=== PATIENT | female | born 1945 | race Asian ===

== ENCOUNTER 2017-09-11 10:09 | Emergency (ER) | payer MEDICARE ==
[~2017-09-11] VITALS: Ht 152.4 cm; Wt 54.5 kg
[~2017-09-11 10:09] MED LIST: /ESOM40CA OR; /FENT50PA; /GLIM2TA OR; ACET500C OR; ANTI25TA; AVAP150T OR; BETAMETHASONE CREAM TOP; CARV12.5 OR; COLA100C2; COZA100T; COZA50TA18 OR; GLUC500T OR; HYDROCONE; HYZAAR OR; LEVA500T; LOPR50TA; MELOPOW PO; NEUR100C OR; NORV5TAB OR; PRAV40TA OR; PREG50CA; PREV15CA OR; [UNRECOGNIZED DRUG - OTHER]; [UNRECOGNIZED DRUG - OTHER] OR; [UNRECOGNIZED DRUG - OTHER] OR
[2017-09-11 10:10] VITALS: BP 138/84
[2017-09-11] MEDS ORDERED: PRED10PA2 PO (10:22)
[2017-09-11] MEDS ORDERED: [UNRECOGNIZED DRUG - OTHER] (10:22)
[2017-09-11] MEDS ORDERED: CIPR-249 PO (10:22)
[2017-09-11] MEDS ORDERED: MUCI600T31 PO (10:22)
--- NOTE | 2017-09-11 11:18 | REP ---
CHEST, TWO VIEWS: There is no evidence of acute infiltrate. No pleural effusion is seen. The heart is normal in size. The mediastinal silhouette is unremarkable. The visualized osseous structures are intact. There are mild degenerative changes of the spine. IMPRESSION: No acute pulmonary disease. Signed by Juan Alvarado MD 09/11/2017 04:57 P
[2017-09-11] MEDS ORDERED: VENTAER IN (11:33)
[2017-09-11] MEDS ORDERED: TESS100C PO (11:33)
[2017-09-11] MEDS ORDERED: BENZONATATE 100 MG CAP PO ONE (11:45)
== END 2017-09-11 11:47 | disposition home or self-care (01) ==
LOC: M ED 10:09
DX: J20.9 Acute bronchitis, unspecified (principal); J45.901 Unspecified asthma with (acute) exacerbation; I10 Essential (primary) hypertension; E11.9 Type 2 diabetes mellitus without complications; Z79.899 Other long term (current) drug therapy; Z79.84 Long term (current) use of oral hypoglycemic drugs; Z88.0 Allergy status to penicillin

== ENCOUNTER → 2018-02-20 | Outpatient (CLI) | payer MEDICARE ==
[2018-02-20 07:08] LABS: HEMATOCRIT 40.3 % (36.0-47.0); HEMOGLOBIN 13.7 g/dl (12.0-15.5); MEAN CORPUSCULAR HEMOGLOBIN 28.5 pg (27.0-33.0); PLATELET COUNT, AUTOMATED 290 10^3/uL (150-450); RED CELL DISTRIBUTION WIDTH 12.3 % (11.5-14.5); WHITE BLOOD COUNT 7.5 10^3/uL (4.0-10.0)
[2018-02-20 07:34] LABS: ESTIMATED AVERAGE GLUCOSE 171 MG/DL (60-110); HEMOGLOBIN A1c 7.6 %
[2018-02-20 07:40] LABS: ALBUMIN 3.8 GM/DL (3.2-5.2); ALBUMIN/GLOBULIN RATIO 1.12 (1.00-1.93); ALKALINE PHOSPHATASE 66 U/L (45-117); ALT/SGPT 32 U/L (12-78); ANION GAP 7 MEQ/L (8-16); AST/SGOT 19 U/L (7-37); BILIRUBIN,TOTAL 0.4 MG/DL (0.2-1.0); BLOOD UREA NITROGEN 11 MG/DL (7-18); CALCIUM LEVEL 8.9 MG/DL (8.8-10.2); CARBON DIOXIDE LEVEL 27 MEQ/L (21-32); CHLORIDE LEVEL 108 MEQ/L (98-107); CHOLESTEROL LEVEL 165 MG/DL (<200); CHOLESTEROL RISK RATIO 3.113 (<5); CREATININE FOR GFR 0.59 MG/DL (0.55-1.30); GLOMERULAR FILTRATION RATE > 60.0 (>39); GLUCOSE, FASTING 130 MG/DL (70-100); HDL CHOLESTEROL 53 MG/DL (>40); LDL CHOLESTEROL 85.6 MG/DL (<100); NON-HDL-C 112 MG/DL; POTASSIUM SERUM 4.5 MEQ/L (3.5-5.1); SODIUM LEVEL 142 MEQ/L (136-145); TOTAL PROTEIN 7.2 GM/DL (6.4-8.2); TRIGLYCERIDES LEVEL 132 MG/DL (<150)
[2018-02-20 10:33] LABS: TOTAL 25(OH) VITAMIN D 37.2 NG/ML (30.0-100.0)
== END ==
LOC: M LAB 06:02
DX: I10 Essential (primary) hypertension (principal); E11.9 Type 2 diabetes mellitus without complications; R53.83 Other fatigue; Z79.899 Other long term (current) drug therapy
CPT/HCPCS: 71046

== ENCOUNTER → 2018-02-21 | Outpatient (CLI) | payer MEDICARE | LOC: M RAD 17:38 | DX: Z12.31 Encounter for screening mammogram for malignant neoplasm of breast (principal) | CPT/HCPCS: 77067 ==

== ENCOUNTER → 2018-09-20 | Outpatient (CLI) | payer MEDICARE ==
[~2018-09-20] MED LIST changes: +CIPR-249 PO; +E-Z-PAQUE 96% w/w SUSP 176GM BTL As Ordered ONE; +MUCI600T31 PO; +PRED10PA2 PO; +TESS100C PO; +VENTAER IN; +[UNRECOGNIZED DRUG - OTHER]
== END ==
LOC: M RAD 09:11
PROVIDERS: ATTEND Family Medicine
DX: R10.13 Epigastric pain (principal); Z53.8 Procedure and treatment not carried out for other reasons

== ENCOUNTER → 2018-10-04 | Outpatient (CLI) | payer MEDICARE ==
[~2018-10-04] MED LIST changes: +E-Z-GAS II EFFERVESCENT PACKET (SODIUM BICARB./CITRIC ACID/SIMETHICONE) As Ordered ONE; +E-Z-HD 98% w/w 340GM SUSP BTL As Ordered ONE
--- NOTE | 2018-10-04 10:40 | REP ---
RIGHT UPPER QUADRANT ULTRASOUND: Real-time sonographic evaluation of the right upper quadrant performed. There is a gallbladder polyp 6 mm in diameter along the inner wall. There is a calculus in the gallbladder 1.5 cm in diameter. No gallbladder wall thickening is seen and there is no pericholecystic fluid. There is no intrahepatic or extrahepatic biliary dilatation, common bile duct measuring 4 mm. Liver and pancreas demonstrate no definite abnormality, pancreas is not optimally seen due to overlying bowel gas. Right kidney demonstrates an extrarenal pelvis. There is no overt hydronephrosis. Right kidney is normal in size, 9.3 cm in length. IMPRESSION: 6 mm polyp in the gallbladder as well as a 1.5 mm gallstone. No gallbladder wall thickening, pericholecystic fluid or biliary dilatation. Electronically Signed by Juan Alvarado MD 10/04/2018 12:18 P
--- NOTE | 2018-10-04 17:10 | REP ---
Upper GI air contrast The procedure was performed under the direct supervision of Dr. Alvarado. The images were reviewed with Dr. Alvarado The skin toggler film shows no organomegaly or pathological masses. The intestinal gas pattern is non-specific. There are gallstones seen in the right upper quadrant. Liquid barium and gas producing crystals were given in the erect position as well as liquid barium in the prone oblique position in order to perform a double contrast upper GI examination. The oral and pharyngeal stages of deglutition are unremarkable. Esophageal transport is prompt and efficient and there is no esophagitis, stricture, mucosal ring or hiatal hernia. Gastroesophageal reflux is not demonstrated on this examination. The stomach mills are normally outlined . The rugal folds are smooth and regular. There is no gastritis neoplasm or ulcer disease. The duodenal mills are normally outlined . The mucosal folds are smooth and regular. There is no duodenitis pancreatitis peptic ulcer disease or neoplasm. The visualized portion of the proximal small bowel appears normal in course and caliber. Impression: Essentially unremarkable double contrast upper GI examination. 0.5 minutes of fluoro time was utilized for this procedure. Reviewed by JUNIOR Ram 10/04/2018 04:58 P Electronically Signed by Juan Alvarado MD 10/04/2018 05:01 P
== END ==
LOC: M RAD 08:05
PROVIDERS: ATTEND Family Medicine
DX: R10.13 Epigastric pain (principal)

== ENCOUNTER 2019-05-19 07:00 | Outpatient (RCR) | payer MEDICARE ==
[~2019-05-19 07:00] MED LIST changes: -/ESOM40CA OR; -/FENT50PA; -/GLIM2TA OR; +AMAR1TAB5 OR; -E-Z-GAS II EFFERVESCENT PACKET (SODIUM BICARB./CITRIC ACID/SIMETHICONE) As Ordered ONE; -E-Z-HD 98% w/w 340GM SUSP BTL As Ordered ONE; -E-Z-PAQUE 96% w/w SUSP 176GM BTL As Ordered ONE; +FENT1DIS15; +NEXI1CAP3 OR
== END 2019-05-21 ==
LOC: M PT 07:00
PROVIDERS: ATTEND Family Medicine
DX: Z51.89 Encounter for other specified aftercare (principal); M25.511 Pain in right shoulder; M25.512 Pain in left shoulder

== ENCOUNTER → 2019-05-22 | Outpatient (CLI) | payer MEDICARE ==
[2019-05-22 07:16] LABS: HEMATOCRIT 40.4 % (36.0-47.0); HEMOGLOBIN 13.7 g/dl (12.0-15.5); MEAN CORPUSCULAR HEMOGLOBIN 28.7 pg (27.0-33.0); MEAN CORPUSCULAR HGB CONC 33.9 g/dl (32.0-36.5); MEAN CORPUSCULAR VOLUME 84.7 fl (80.0-96.0); PLATELET COUNT, AUTOMATED 203 10^3/uL (150-450); RED BLOOD COUNT 4.77 10^6/uL (4.00-5.40); WHITE BLOOD COUNT 8.1 10^3/uL (4.0-10.0)
[2019-05-22 07:48] LABS: HEMOGLOBIN A1c 7.4 %
[2019-05-22 09:04] LABS: ALBUMIN 3.9 GM/DL (3.2-5.2); ALT/SGPT 29 U/L (12-78); BILIRUBIN,TOTAL 0.4 MG/DL (0.2-1.0); BLOOD UREA NITROGEN 12 MG/DL (7-18); CALCIUM LEVEL 9.1 MG/DL (8.8-10.2); CARBON DIOXIDE LEVEL 28 MEQ/L (21-32); CHLORIDE LEVEL 103 MEQ/L (98-107); CHOLESTEROL LEVEL 184 MG/DL (<200); CHOLESTEROL RISK RATIO 3.471 (<5); CREATININE FOR GFR 0.69 MG/DL (0.55-1.30); GLOMERULAR FILTRATION RATE > 60.0 (>39); GLUCOSE, FASTING 127 MG/DL (70-100); HDL CHOLESTEROL 53 MG/DL (>40); LDL CHOLESTEROL 98 MG/DL (<100); NON-HDL-C 131 MG/DL; POTASSIUM SERUM 4.3 MEQ/L (3.5-5.1); SODIUM LEVEL 138 MEQ/L (136-145); TOTAL PROTEIN 7.3 GM/DL (6.4-8.2); TRIGLYCERIDES LEVEL 163 MG/DL (<150)
== END ==
LOC: M LAB 06:15
PROVIDERS: ATTEND Family Medicine
DX: D64.9 Anemia, unspecified (principal); R53.83 Other fatigue; Z79.899 Other long term (current) drug therapy

== ENCOUNTER → 2019-06-02 | Outpatient (CLI) | payer MEDICARE, MEDICAID ==
--- NOTE | 2019-06-02 19:46 | REPMRS ---
Patient History The patient states she has not had a clinical breast exam in over a year. Benign stereotactic core biopsy of the right breast. Digital Mammo Screening Bilat: June 02, 2019 - Exam #: [id number] Bilateral CC and MLO view(s) were taken. Technologist: Kaitlynn Espino, Technologist Prior study comparison: February 21, 2018, bilateral digital mammo screening bilat performed at [facility]. October 05, 2015, bilateral digital woman screen mammo performed at [facility]. June 16, 2009, right breast diagnostic mammogram, performed at [facility]. FINDINGS: There are scattered fibroglandular densities. A needle biopsy marker clip is again noted adjacent to a stable nodular opacity in the upper outer quadrant of the right breast unchanged from multiple prior studies. There has been no change in the appearance of the mammogram from the prior studies. There is a mild amount of scattered fibroglandular density which is fairly symmetric. There is no interval development of dominant mass, architectural distortion, or grouped microcalcification suggestive of malignancy. 3-D tomosynthesis shows no additional findings. Assessment: BI-RADS/ACR category 2 mammogram. Benign Findings. Recommendation Routine screening mammogram of both breasts in 1 year (for women over age 40). This patient's Lifetime Breast Cancer Risk is estimated at 4.2 %. This mammogram was interpreted with the aid of an FDA-approved computer-aided dectection system. Electronically Signed By: Nick Del Angel MD 06/02/19 [id number]
== END ==
LOC: M RAD 17:30
PROVIDERS: ATTEND Family Medicine
DX: Z12.31 Encounter for screening mammogram for malignant neoplasm of breast (principal)

== ENCOUNTER 2019-06-18 07:00 | Outpatient (RCR) | payer MEDICARE | END 2019-06-21 | LOC: M PT 07:00 | PROVIDERS: ATTEND Family Medicine | DX: Z51.89 Encounter for other specified aftercare (principal); M25.511 Pain in right shoulder; M25.512 Pain in left shoulder ==

== ENCOUNTER 2019-06-25 11:18 | Outpatient (RCR) | payer MEDICARE | END 2019-07-21 | LOC: M PT 11:18 | PROVIDERS: ATTEND Family Medicine | DX: Z51.89 Encounter for other specified aftercare (principal); M19.011 Primary osteoarthritis, right shoulder; M19.012 Primary osteoarthritis, left shoulder ==

== ENCOUNTER → 2020-06-25 | Outpatient (CLI) | payer MEDICARE ==
--- NOTE | 2020-06-25 16:37 | REPMRS ---
Patient History The patient states she has not had a clinical breast exam in over a year. Patient is postmenopausal. No known family history of cancer. Benign stereotactic core biopsy of the right breast. No Hormone Replacement Therapy 3D TOMOSYNTHESIS WAS PERFORMED. [facility]%. VOLPARA DENSITY B. Digital Woman Screen Mammo: June 25, 2020 - Exam #: [id number] Bilateral CC and MLO view(s) were taken. Technologist: Jacqueline Abraham, Technologist Prior study comparison: June 02, 2019, bilateral digital mammo screening bilat, performed at [facility]. February 21, 2018, bilateral digital mammo screening bilat, performed at [facility]. FINDINGS: The breast tissue is heterogeneously dense. This may lower the sensitivity of mammography. There has been no change in the appearance of the mammogram from the prior studies. There is a moderate amount of residual fibroglandular tissue which is fairly symmetric. There is no interval development of dominant mass, areas of architectural distortion, or clustered microcalcification typical of malignancy. Assessment: BI-RADS/ACR category 1 mammogram. Negative Mammogram. Recommendation Routine screening mammogram in 1 year (for women over age 40). This mammogram was interpreted with the aid of an FDA-approved computer-aided dectection system. Electronically Signed By: Juan Alvarado MD 06/25/20 [id number]
== END ==
LOC: M WHC 15:22
PROVIDERS: ATTEND Family Medicine
DX: Z12.31 Encounter for screening mammogram for malignant neoplasm of breast (principal); Z78.0 Asymptomatic menopausal state; Z86.018 Personal history of other benign neoplasm

== ENCOUNTER → 2020-09-12 | Outpatient (CLI) | payer MEDICARE ==
[2020-09-12 09:20] LABS: MEAN CORPUSCULAR HEMOGLOBIN 29.1 pg (27.0-33.0); MEAN CORPUSCULAR HGB CONC 33.3 g/dl (32.0-36.5); MEAN CORPUSCULAR VOLUME 87.4 fl (80.0-96.0); PLATELET COUNT, AUTOMATED 224 10^3/uL (150-450); RED BLOOD COUNT 4.46 10^6/uL (4.00-5.40); WHITE BLOOD COUNT 6.1 10^3/uL (4.0-10.0)
[2020-09-12 09:39] LABS: ALBUMIN 4.1 GM/DL (3.2-5.2); ALT/SGPT 32 U/L (12-78); BILIRUBIN,TOTAL 0.5 MG/DL (0.2-1.0); BLOOD UREA NITROGEN 12 MG/DL (7-18); CALCIUM LEVEL 9.6 MG/DL (8.8-10.2); CARBON DIOXIDE LEVEL 28 MEQ/L (21-32); CHLORIDE LEVEL 105 MEQ/L (98-107); CHOLESTEROL LEVEL 211 MG/DL (<200); CHOLESTEROL RISK RATIO 3.767 (<5); CREATININE FOR GFR 0.76 MG/DL (0.55-1.30); GLOMERULAR FILTRATION RATE > 60.0 (>39); GLUCOSE, FASTING 166 MG/DL (70-100); HDL CHOLESTEROL 56 MG/DL (>40); LDL CHOLESTEROL 123 MG/DL (<100); NON-HDL-C 155 MG/DL; POTASSIUM SERUM 4.3 MEQ/L (3.5-5.1); SODIUM LEVEL 138 MEQ/L (136-145); TOTAL PROTEIN 7.4 GM/DL (6.4-8.2); TRIGLYCERIDES LEVEL 160 MG/DL (<150)
[2020-09-12 10:08] LABS: HEMOGLOBIN A1c 7.1 %
[2020-09-13 10:16] LABS: TOTAL 25(OH) VITAMIN D 46.4 NG/ML (30.0-100.0)
== END ==
LOC: M LAB 08:12
PROVIDERS: ATTEND Family Medicine
DX: R53.83 Other fatigue (principal); E11.9 Type 2 diabetes mellitus without complications; I10 Essential (primary) hypertension; Z79.899 Other long term (current) drug therapy

== ENCOUNTER → 2020-12-16 | Outpatient (CLI) | payer MEDICARE ==
[2020-12-16 06:58] LABS: HEMATOCRIT 39.4 % (36.0-47.0); HEMOGLOBIN 13.1 g/dl (12.0-15.5); MEAN CORPUSCULAR HEMOGLOBIN 29.1 pg (27.0-33.0); MEAN CORPUSCULAR HGB CONC 33.2 g/dl (32.0-36.5); MEAN CORPUSCULAR VOLUME 87.6 fl (80.0-96.0); PLATELET COUNT, AUTOMATED 241 10^3/uL (150-450); WHITE BLOOD COUNT 7.3 10^3/uL (4.0-10.0)
[2020-12-16 07:36] LABS: ALBUMIN 3.8 GM/DL (3.2-5.2); ALT/SGPT 34 U/L (12-78); BILIRUBIN,TOTAL 0.4 MG/DL (0.2-1.0); BLOOD UREA NITROGEN 14 MG/DL (7-18); CALCIUM LEVEL 9.9 MG/DL (8.8-10.2); CARBON DIOXIDE LEVEL 28 MEQ/L (21-32); CHLORIDE LEVEL 107 MEQ/L (98-107); CHOLESTEROL LEVEL 231 MG/DL (<200); CHOLESTEROL RISK RATIO 3.982 (<5); CREATININE FOR GFR 0.79 MG/DL (0.55-1.30); GLOMERULAR FILTRATION RATE > 60.0 (>39); GLUCOSE, FASTING 167 MG/DL (70-100); HDL CHOLESTEROL 58 MG/DL (>40); LDL CHOLESTEROL 132 MG/DL (<100); NON-HDL-C 173 MG/DL; POTASSIUM SERUM 4.2 MEQ/L (3.5-5.1); SODIUM LEVEL 141 MEQ/L (136-145); TOTAL PROTEIN 7.5 GM/DL (6.4-8.2); TRIGLYCERIDES LEVEL 205 MG/DL (<150)
[2020-12-16 09:09] LABS: TOTAL 25(OH) VITAMIN D 33.5 NG/ML (30.0-100.0)
[2020-12-16 09:18] LABS: HEMOGLOBIN A1c 7.2 %
== END ==
LOC: M LAB 06:08
PROVIDERS: ATTEND Family Medicine
DX: R53.83 Other fatigue (principal); I10 Essential (primary) hypertension; E11.9 Type 2 diabetes mellitus without complications; Z79.899 Other long term (current) drug therapy

== ENCOUNTER → 2021-09-12 | Outpatient (CLI) | payer MEDICARE, MEDICAID ==
[2021-09-12 07:15] LABS: HEMATOCRIT 37.2 % (36.0-47.0); HEMOGLOBIN 12.5 g/dl (12.0-15.5); MEAN CORPUSCULAR HEMOGLOBIN 28.9 pg (27.0-33.0); MEAN CORPUSCULAR HGB CONC 33.6 g/dl (32.0-36.5); MEAN CORPUSCULAR VOLUME 85.9 fl (80.0-96.0); PLATELET COUNT, AUTOMATED 293 10^3/uL (150-450); RED BLOOD COUNT 4.33 10^6/uL (4.00-5.40); WHITE BLOOD COUNT 7.7 10^3/uL (4.0-10.0)
[2021-09-12 07:58] LABS: ALBUMIN 3.6 GM/DL (3.2-5.2); ALT/SGPT 31 U/L (12-78); BILIRUBIN,TOTAL 0.5 MG/DL (0.2-1.0); BLOOD UREA NITROGEN 11 MG/DL (7-18); CALCIUM LEVEL 9.6 MG/DL (8.8-10.2); CARBON DIOXIDE LEVEL 28 MEQ/L (21-32); CHLORIDE LEVEL 104 MEQ/L (98-107); CHOLESTEROL LEVEL 185 MG/DL (<200); CHOLESTEROL RISK RATIO 3.245 (<5); CREATININE FOR GFR 0.72 MG/DL (0.55-1.30); GLOMERULAR FILTRATION RATE > 60.0 (>39); GLUCOSE, FASTING 204 MG/DL (70-100); HDL CHOLESTEROL 57 MG/DL (>40); LDL CHOLESTEROL 100 MG/DL (<100); NON-HDL-C 128 MG/DL; POTASSIUM SERUM 4.3 MEQ/L (3.5-5.1); SODIUM LEVEL 138 MEQ/L (136-145); TOTAL PROTEIN 7.2 GM/DL (6.4-8.2); TRIGLYCERIDES LEVEL 140 MG/DL (<150)
[2021-09-12 08:18] LABS: HEMOGLOBIN A1c 7.9 %
[2021-09-12 10:10] LABS: TOTAL 25(OH) VITAMIN D 41.2 NG/ML (30.0-100.0)
== END ==
LOC: M LAB 06:30
PROVIDERS: ATTEND Family Medicine
DX: I10 Essential (primary) hypertension (principal); E11.9 Type 2 diabetes mellitus without complications; R53.83 Other fatigue; Z79.899 Other long term (current) drug therapy

== ENCOUNTER → 2022-01-13 | Outpatient (CLI) | payer MEDICARE, MEDICAID ==
[2022-01-13 07:16] LABS: HEMATOCRIT 34.8 % (36.0-47.0); MEAN CORPUSCULAR HEMOGLOBIN 28.4 pg (27.0-33.0); MEAN CORPUSCULAR HGB CONC 34.5 g/dl (32.0-36.5); MEAN CORPUSCULAR VOLUME 82.5 fl (80.0-96.0); PLATELET COUNT, AUTOMATED 272 10^3/uL (150-450); RED BLOOD COUNT 4.22 10^6/uL (4.00-5.40); WHITE BLOOD COUNT 9.5 10^3/uL (4.0-10.0)
[2022-01-13 07:41] LABS: HEMOGLOBIN A1c 8.4 %
[2022-01-13 07:45] LABS: ALBUMIN 3.6 GM/DL (3.2-5.2); ALT/SGPT 31 U/L (12-78); BILIRUBIN,TOTAL 0.5 MG/DL (0.2-1.0); BLOOD UREA NITROGEN 10 MG/DL (7-18); CALCIUM LEVEL 9.2 MG/DL (8.8-10.2); CARBON DIOXIDE LEVEL 27 MEQ/L (21-32); CHLORIDE LEVEL 105 MEQ/L (98-107); CHOLESTEROL LEVEL 167 MG/DL (<200); CREATININE FOR GFR 0.69 MG/DL (0.55-1.30); GLOMERULAR FILTRATION RATE > 60.0 (>39); GLUCOSE, FASTING 226 MG/DL (70-100); HDL CHOLESTEROL 53 MG/DL (>40); LDL CHOLESTEROL 90 MG/DL (<100); NON-HDL-C 114 MG/DL; POTASSIUM SERUM 4.1 MEQ/L (3.5-5.1); SODIUM LEVEL 138 MEQ/L (136-145); TOTAL PROTEIN 7.1 GM/DL (6.4-8.2); TRIGLYCERIDES LEVEL 120 MG/DL (<150)
== END ==
LOC: M RAD 06:08
PROVIDERS: ATTEND Family Medicine
DX: I10 Essential (primary) hypertension (principal); J44.9 Chronic obstructive pulmonary disease, unspecified; E11.9 Type 2 diabetes mellitus without complications; R53.83 Other fatigue

== ENCOUNTER → 2022-08-15 | Outpatient (CLI) | payer MEDICARE, MEDICAID ==
[~2022-08-15] MED LIST changes: +ISOVUE-300 61% 50ML VIAL As Ordered ONE; +LIDOCAINE 1% MDV 20ML VIAL As Ordered ONE; +TRIAMCINOLONE ACETONIDE SUSP 40 MG/ML VIAL (J3301) As Ordered ONE
== END ==
LOC: M RAD 13:53
PROVIDERS: ATTEND Physician Assistant
DX: M19.012 Primary osteoarthritis, left shoulder (principal)
CPT/HCPCS: 20610; 76000; J3301; Q9967

== ENCOUNTER → 2022-08-25 | Outpatient (CLI) | payer MEDICARE, MEDICAID ==
[~2022-08-25] MED LIST changes: -ISOVUE-300 61% 50ML VIAL As Ordered ONE; +ISOVUE-300 61% 50ML VIAL ONE; -LIDOCAINE 1% MDV 20ML VIAL As Ordered ONE; +LIDOCAINE 1% MDV 20ML VIAL ONE; -TRIAMCINOLONE ACETONIDE SUSP 40 MG/ML VIAL (J3301) As Ordered ONE; +TRIAMCINOLONE ACETONIDE SUSP 40 MG/ML VIAL (J3301) ONE
== END ==
LOC: M PLAIMG 15:37
PROVIDERS: ATTEND Physician Assistant
DX: M75.41 Impingement syndrome of right shoulder (principal)
CPT/HCPCS: 20610; 76000; J3301; Q9967

== ENCOUNTER → 2022-09-16 | Outpatient (CLI) | payer MEDICARE, MEDICAID ==
[~2022-09-16] MED LIST changes: -ISOVUE-300 61% 50ML VIAL ONE; -LIDOCAINE 1% MDV 20ML VIAL ONE; -TRIAMCINOLONE ACETONIDE SUSP 40 MG/ML VIAL (J3301) ONE
[2022-09-16 09:13] LABS: BASO % 0.4 % (0.0-1.0); EOS # 0.2 10^3/uL (0.0-0.5); EOS % 1.9 % (0.0-3.0); LYMPH # 2.6 10^3/uL (1.5-5.0); LYMPH % 30.3 % (24.0-44.0); MEAN CORPUSCULAR HEMOGLOBIN 29.1 pg (27.0-33.0); MEAN CORPUSCULAR HGB CONC 33.3 g/dl (32.0-36.5); MEAN CORPUSCULAR VOLUME 87.2 fl (80.0-96.0); MONO # 0.6 10^3/uL (0.0-0.8); MONO % 7.1 % (2.0-8.0); NEUTROPHILS # 5.2 10^3/uL (1.5-8.5); NEUTROPHILS % 60.2 % (36.0-66.0); PLATELET COUNT, AUTOMATED 310 10^3/uL (150-450); RED BLOOD COUNT 4.13 10^6/uL (4.00-5.40); WHITE BLOOD COUNT 8.6 10^3/uL (4.0-10.0)
[2022-09-16 09:48] LABS: ERYTHROCYTE SEDIMENTATION RATE 27 mm/hr (0-30)
[2022-09-16 10:15] LABS: ALBUMIN 3.7 G/DL (3.2-5.2); ALT/SGPT 25 U/L (7.0-40); BILIRUBIN,TOTAL 0.4 MG/DL (0.3-1.2); BLOOD UREA NITROGEN 14 MG/DL (9-23); CALCIUM LEVEL 9.4 MG/DL (8.3-10.6); CARBON DIOXIDE LEVEL 26 MMOL/L (20-31); CHLORIDE LEVEL 102 MMOL/L (98-107); CREATININE FOR GFR 0.58 MG/DL (0.55-1.30); FOLATE > 24.0 NG/ML (>5.4); GLOMERULAR FILTRATION RATE > 60.0 (>39); GLUCOSE, FASTING 171 MG/DL (74-106); POTASSIUM SERUM 4.6 MMOL/L (3.5-5.1); RHEUMATOID FACTOR QUANT < 3.5 IU/ML (<14); SODIUM LEVEL 140 MMOL/L (136-145); THYROID STIMULATING HORMONE 1.388 uIU/ML (0.55-4.78); TOTAL PROTEIN 6.7 G/DL (5.7-8.2); VITAMIN B12 LEVEL 1488 PG/ML (211-911)
[2022-09-21 00:07] LABS: ANTINUCLEAR ANTIBODIES DIRECT Negative (Negative); VITAMIN B1 LEVEL WHOLE BLOOD 153.5 nmol/L (66.5-200.0); VITAMIN B6,PYRIDOXAL PHOSPHATE 34.6 ug/L (3.4-65.2); VITAMIN E(ALPHA TOCOPHEROL) 18.3 mg/L (9.0-29.0); VITAMIN E(GAMMA TOCOPHEROL) 1.4 mg/L (0.5-4.9)
== END ==
LOC: M LAB 08:08
PROVIDERS: ATTEND Psychiatry & Neurology Neurology
DX: R51.9 Headache, unspecified (principal); R41.3 Other amnesia

== ENCOUNTER → 2022-11-29 | Outpatient (CLI) | payer MEDICARE, MEDICAID ==
[~2022-11-29] MED LIST changes: +ISOVUE-300 61% 100ML VIAL ONE; +LIDOCAINE 1% MDV 20ML VIAL ONE; +TRIAMCINOLONE ACETONIDE SUSP 40MG/ML 1ML VIAL ONE
== END ==
LOC: M PLAIMG 15:03
PROVIDERS: ATTEND Physician Assistant
DX: M19.011 Primary osteoarthritis, right shoulder (principal)
CPT/HCPCS: 20610; 76000; Q9967

== ENCOUNTER → 2023-01-20 | Outpatient (CLI) | payer MEDICARE, MEDICAID ==
[~2023-01-20] MED LIST changes: -ISOVUE-300 61% 100ML VIAL ONE; -LIDOCAINE 1% MDV 20ML VIAL ONE; -TRIAMCINOLONE ACETONIDE SUSP 40MG/ML 1ML VIAL ONE
[2023-01-20 08:58] LABS: HEMATOCRIT 38.2 % (36.0-47.0); HEMOGLOBIN 12.6 g/dl (12.0-15.5); MEAN CORPUSCULAR HEMOGLOBIN 28.5 pg (27.0-33.0); MEAN CORPUSCULAR VOLUME 86.4 fl (80.0-96.0); PLATELET COUNT, AUTOMATED 190 10^3/uL (150-450); RED BLOOD COUNT 4.42 10^6/uL (4.00-5.40); WHITE BLOOD COUNT 9.5 10^3/uL (4.0-10.0)
[2023-01-20 09:37] LABS: ALBUMIN 3.2 G/DL (3.2-5.2); ALKALINE PHOSPHATASE 58 U/L (46-116); ALT/SGPT 17 U/L (7.0-40); AST/SGOT 13 U/L (<34); BILIRUBIN,TOTAL 0.3 MG/DL (0.3-1.2); BLOOD UREA NITROGEN 20 MG/DL (9-23); CALCIUM LEVEL 9.2 MG/DL (8.3-10.6); CARBON DIOXIDE LEVEL 29 MMOL/L (20-31); CHLORIDE LEVEL 103 MMOL/L (98-107); CHOLESTEROL LEVEL 166 MG/DL (<200); CHOLESTEROL RISK RATIO 2.83 (<5); CREATININE FOR GFR 0.64 MG/DL (0.55-1.30); GLOMERULAR FILTRATION RATE > 60.0 (>39); GLUCOSE, FASTING 112 MG/DL (74-106); HDL CHOLESTEROL 58.5 MG/DL (>40); LDL CHOLESTEROL 90.1 MG/DL (<100); NON-HDL-C 107.5 MG/DL; POTASSIUM SERUM 3.9 MMOL/L (3.5-5.1); SODIUM LEVEL 137 MMOL/L (136-145); THYROID STIMULATING HORMONE 3.623 uIU/ML (0.55-4.78); TOTAL 25(OH) VITAMIN D 52.6 NG/ML (20.0-100.0); TOTAL PROTEIN 6.3 G/DL (5.7-8.2); TRIGLYCERIDES LEVEL 87 MG/DL (<150)
== END ==
LOC: M LAB 08:26
PROVIDERS: ATTEND Family Medicine
DX: I10 Essential (primary) hypertension (principal); R53.83 Other fatigue; Z79.899 Other long term (current) drug therapy

== ENCOUNTER → 2023-07-03 | Outpatient (CLI) | payer MEDICARE, MEDICAID | LOC: M RAD 16:22 | PROVIDERS: ATTEND Physician Assistant Medical | DX: R07.81 Pleurodynia (principal); Z91.81 History of falling ==

== ENCOUNTER 2023-08-23 16:59 | Inpatient (IN) | payer MEDICARE, MEDICAID ==
[~2023-08-23] VITALS: Ht 152.4 cm; Wt 51.5 kg
[~2023-08-23 16:59] MED LIST changes: -AMLO1TAB24; -AMLO1TAB24 PO; -CARV12.5 PO; -CIPR500T39; -GLIM2TAB4 PO; -LEVO50TA5; -MAGN400T2 PO; -METF10004; -METF10004 PO; -MONT10TA97; -MONT10TA97 PO; -OMEP1CAP73 PO; -ONDA4TAB6; -ONDA4TAB6 PO; -ONDA4TAB6 SL; -OXYB5TAB11 PO; -PRAV40TA2 PO; -SUCR1TA PO; -SYNT50TA PO; -VALS1TAB66; -VALS1TAB66 PO; -VITMTA PO
[2023-08-23] MEDS ORDERED: ONDA4TAB6 (17:13)
[2023-08-23] MEDS ORDERED: MONT10TA97 (17:13)
[2023-08-23] MEDS ORDERED: LEVO50TA5 (17:13)
[2023-08-23] MEDS ORDERED: VALS1TAB66 (17:13)
[2023-08-23] MEDS ORDERED: AMLO1TAB24 (17:13)
[2023-08-23] MEDS ORDERED: CIPR500T39 (17:13)
[2023-08-23] MEDS ORDERED: METF10004 (17:13)
[2023-08-23 18:48] LABS: BASO % 0.1 % (0.0-1.0); EOS # 0.1 10^3/uL (0.0-0.5); EOS % 0.6 % (0.0-3.0); HEMATOCRIT 35.4 % (36.0-47.0); HEMOGLOBIN 12.9 g/dl (12.0-15.5); LYMPH # 2.3 10^3/uL (1.5-5.0); LYMPH % 29.2 % (24.0-44.0); MEAN CORPUSCULAR HEMOGLOBIN 29.3 pg (27.0-33.0); MEAN CORPUSCULAR HGB CONC 36.4 g/dl (32.0-36.5); MEAN CORPUSCULAR VOLUME 80.5 fl (80.0-96.0); MONO # 0.7 10^3/uL (0.0-0.8); MONO % 8.9 % (2.0-8.0); NEUTROPHILS # 4.8 10^3/uL (1.5-8.5); NEUTROPHILS % 61.1 % (36.0-66.0); PLATELET COUNT, AUTOMATED 348 10^3/uL (150-450); WHITE BLOOD COUNT 7.8 10^3/uL (4.0-10.0)
[2023-08-23 19:03] LABS: LIPASE 28 U/L (12-53)
[2023-08-23 19:05] LABS: RSV AMPLIFICATION NEGATIVE (NEGATIVE)
[2023-08-23 19:06] LABS: ALBUMIN 3.7 G/DL (3.2-5.2); ALKALINE PHOSPHATASE 57 U/L (46-116); ALT/SGPT 22 U/L (7.0-40); AST/SGOT 13 U/L (<34); BILIRUBIN,DIRECT 0.3 MG/DL (<0.4); BILIRUBIN,TOTAL 0.7 MG/DL (0.3-1.2); BLOOD UREA NITROGEN 13 MG/DL (9-23); CALCIUM LEVEL 9.2 MG/DL (8.3-10.6); CARBON DIOXIDE LEVEL 24 MMOL/L (20-31); CHLORIDE LEVEL 89 MMOL/L (98-107); CK-MB VALUE MASS 1.2 NG/ML (<3.6); CPK CREATINE PHOSPHOKINASE 48 U/L (34-145); CREATININE FOR GFR 0.64 MG/DL (0.55-1.30); GLOMERULAR FILTRATION RATE > 60.0 (>39); GLUCOSE, FASTING 173 MG/DL (74-106); MAGNESIUM LEVEL 1.1 MG/DL (1.8-2.4); POTASSIUM SERUM 3.5 MMOL/L (3.5-5.1); SODIUM LEVEL 123 MMOL/L (136-145); TOTAL PROTEIN 6.7 G/DL (5.7-8.2)
[2023-08-23] MEDS ORDERED: ISOVUE-370 76% 100ML VIAL As Ordered ONE (19:23)
[2023-08-23] MEDS ORDERED: NS 500 ML IV ONE (19:50)
[2023-08-23] MEDS ORDERED: PRAV40TA2 PO (23:41)
[2023-08-23] MEDS ORDERED: OMEP1CAP73 PO (23:41)
[2023-08-23] MEDS ORDERED: MONT10TA97 PO (23:41)
[2023-08-23] MEDS ORDERED: ONDA4TAB6 PO (23:41)
[2023-08-23] MEDS ORDERED: CIPR-249 PO (23:41)
[2023-08-23] MEDS ORDERED: CARV12.5 PO (23:41)
[2023-08-23] MEDS ORDERED: METF10004 PO (23:41)
[2023-08-23] MEDS ORDERED: AMLO1TAB24 PO (23:41)
[2023-08-23] MEDS ORDERED: VITMTA PO (23:41)
[2023-08-23] MEDS ORDERED: OXYB5TAB11 PO (23:41)
[2023-08-23] MEDS ORDERED: VALS1TAB66 PO (23:41)
[2023-08-23] MEDS ORDERED: SYNT50TA PO (23:41)
[2023-08-23] MEDS ORDERED: GLIM2TAB4 PO (23:41)
[2023-08-23] MEDS ORDERED: HOME MED LIST COMPLETE! XX SCH (23:45)
[2023-08-24] MEDS ORDERED: MOM 30ML SUSPENSION UDC PO PRN
[2023-08-24] MEDS ORDERED: ACETAMINOPHEN TAB 650MG DOSE (2X325MG) PO PRN
[2023-08-24] MEDS ORDERED: NS 0.45% 1,000 ML IV SCH
[2023-08-24] MEDS ORDERED: GLUCAGON INJ 1MG VIAL SC PRN (00:10)
[2023-08-24] MEDS ORDERED: DEXTROSE 50% 50ML SYRINGE IV PRN (00:10)
[2023-08-24] MEDS ORDERED: GLUCOSE 4GM CHEW TABLET PO PRN (00:10)
[2023-08-24] MEDS ORDERED: CALCIUM CARBONATE 500 MG CHEW U/D PO PRN (00:15)
[2023-08-24] MEDS ORDERED: NS 1,000 ML IV SCH (00:35)
[2023-08-24 00:53] VITALS: BP 160/75; TEMP 97.9; O2SAT 100
[2023-08-24 02:23] LABS: BLOOD UREA NITROGEN 9 MG/DL (9-23); CARBON DIOXIDE LEVEL 26 MMOL/L (20-31); CHLORIDE LEVEL 92 MMOL/L (98-107); CREATININE FOR GFR 0.62 MG/DL (0.55-1.30); GLOMERULAR FILTRATION RATE > 60.0 (>39); GLUCOSE, FASTING 134 MG/DL (74-106); POTASSIUM SERUM 3.2 MMOL/L (3.5-5.1); SODIUM LEVEL 126 MMOL/L (136-145)
[2023-08-24 02:25] LABS: THYROID STIMULATING HORMONE 3.172 uIU/ML (0.55-4.78)
[2023-08-24 03:05] LABS: CREATININE,RANDOM URINE 25.8 MG/DL
[2023-08-24] MEDS: LEVOTHYROXINE 50MCG TABLET (0.05MG) PO SCH (05:34)
[2023-08-24 06:00] VITALS: BP 148/80; TEMP 97.8; O2SAT 99
[2023-08-24 07:04] LABS: BLOOD UREA NITROGEN 8 MG/DL (9-23); CALCIUM LEVEL 8.5 MG/DL (8.3-10.6); CARBON DIOXIDE LEVEL 24 MMOL/L (20-31); CHLORIDE LEVEL 93 MMOL/L (98-107); CREATININE FOR GFR 0.59 MG/DL (0.55-1.30); GLOMERULAR FILTRATION RATE > 60.0 (>39); GLUCOSE, FASTING 110 MG/DL (74-106); POTASSIUM SERUM 2.8 MMOL/L (3.5-5.1); SODIUM LEVEL 128 MMOL/L (136-145)
[2023-08-24 07:29] LABS: C REACTIVE PROTEIN QUANTITATIV < 0.40 MG/DL (<1.0)
[2023-08-24] MEDS: POTASSIUM CHLORIDE 10MEQ SR TABLET PO SCH ×2 (07:49→20:31)
[2023-08-24] MEDS: MULTIVITAMINS/MINERALS THERAP 1 TAB PO SCH (08:36)
[2023-08-24] MEDS: MONTELUKAST 10 MG TAB PO SCH (08:36)
[2023-08-24] MEDS: ONDANSETRON 4MG ORAL DISINTEGRATING TAB PO SCH ×3 (08:36→20:31)
[2023-08-24] MEDS: MAGNESIUM OXIDE 400MG TAB (MAG-OX) PO SCH ×3 (08:36→20:31)
[2023-08-24] MEDS: PRAVASTATIN 20 MG TAB PO SCH (08:36)
[2023-08-24] MEDS: SODIUM CHLORIDE 1 GM TAB PO SCH ×3 (08:36→17:10)
[2023-08-24] MEDS: ENOXAPARIN 40MG/0.4ML SYRINGE (J1650 PER 10MG) SC SCH (08:37)
[2023-08-24] MEDS: PANTOPRAZOLE 40MG VIAL IV SCH ×2 (08:37→20:31)
[2023-08-24] MEDS: INSULIN LISPRO (NovoLOG) PER UNIT SC SCH ×3 (08:37→16:40)
[2023-08-24] MEDS: CARVedilol 12.5 MG TAB PO SCH ×2 (08:39→20:32)
[2023-08-24] MEDS ORDERED: VALSARTAN 80 MG TAB (DIOVAN) PO SCH (09:00)
[2023-08-24] MEDS ORDERED: amLODIPine 5 MG TAB PO SCH (09:00)
[2023-08-24] MEDS ORDERED: FLUZONE HIGH DOSE(65YR UP)QUAD/PF 240MCG/0.7ML SYRINGE IM.IMMUN ONE (09:00)
[2023-08-24] MEDS ORDERED: POTASSIUM CHLORIDE 10% LIQ 20MEQ/15ML UDC PO ONE (09:00)
[2023-08-24 12:35] LABS: BLOOD UREA NITROGEN 8 MG/DL (9-23); CALCIUM LEVEL 8.3 MG/DL (8.3-10.6); CARBON DIOXIDE LEVEL 22 MMOL/L (20-31); CHLORIDE LEVEL 101 MMOL/L (98-107); CREATININE FOR GFR 0.57 MG/DL (0.55-1.30); GLOMERULAR FILTRATION RATE > 60.0 (>39); GLUCOSE, FASTING 127 MG/DL (74-106); POTASSIUM SERUM 4.2 MMOL/L (3.5-5.1); SODIUM LEVEL 131 MMOL/L (136-145)
[2023-08-24 14:00] VITALS: BP 114/56; TEMP 98.6; O2SAT 97
[2023-08-24 19:00] LABS: BLOOD UREA NITROGEN 8 MG/DL (9-23); CALCIUM LEVEL 8.5 MG/DL (8.3-10.6); CARBON DIOXIDE LEVEL 22 MMOL/L (20-31); CHLORIDE LEVEL 104 MMOL/L (98-107); GLOMERULAR FILTRATION RATE > 60.0 (>39); GLUCOSE, FASTING 116 MG/DL (74-106); POTASSIUM SERUM 3.5 MMOL/L (3.5-5.1); SODIUM LEVEL 135 MMOL/L (136-145)
[2023-08-24] MEDS ORDERED: D5W 1,000 ML IV SCH (20:00)
[2023-08-24 20:11] VITALS: BP 139/65; TEMP 98; O2SAT 97
[2023-08-24] MEDS ORDERED: INSULIN LISPRO (NovoLOG) PER UNIT SC SCH (21:00)
[2023-08-24 23:11] LABS: OSMOLALITY URINE 217 MOSM/KG (50-1400)
[2023-08-24 23:20] LABS: SODIUM,RANDOM URINE 50 MMOL/L
[2023-08-25 01:11] LABS: BLOOD UREA NITROGEN 6 MG/DL (9-23); CARBON DIOXIDE LEVEL 23 MMOL/L (20-31); CHLORIDE LEVEL 100 MMOL/L (98-107); CREATININE FOR GFR 0.58 MG/DL (0.55-1.30); GLOMERULAR FILTRATION RATE > 60.0 (>39); GLUCOSE, FASTING 305 MG/DL (74-106); POTASSIUM SERUM 3.7 MMOL/L (3.5-5.1); SODIUM LEVEL 130 MMOL/L (136-145)
[2023-08-25 05:38] VITALS: BP 135/65; TEMP 98.1; O2SAT 97
[2023-08-25] MEDS: LEVOTHYROXINE 50MCG TABLET (0.05MG) PO SCH (05:41)
[2023-08-25 06:11] LABS: BASO % 0.3 % (0.0-1.0); EOS # 0.2 10^3/uL (0.0-0.5); EOS % 2.2 % (0.0-3.0); HEMATOCRIT 32.9 % (36.0-47.0); LYMPH # 1.9 10^3/uL (1.5-5.0); LYMPH % 28.2 % (24.0-44.0); MEAN CORPUSCULAR HEMOGLOBIN 29.9 pg (27.0-33.0); MEAN CORPUSCULAR HGB CONC 36.5 g/dl (32.0-36.5); MEAN CORPUSCULAR VOLUME 81.8 fl (80.0-96.0); MONO # 0.9 10^3/uL (0.0-0.8); MONO % 12.6 % (2.0-8.0); NEUTROPHILS # 3.8 10^3/uL (1.5-8.5); NEUTROPHILS % 56.4 % (36.0-66.0); PLATELET COUNT, AUTOMATED 314 10^3/uL (150-450); RED BLOOD COUNT 4.02 10^6/uL (4.00-5.40); WHITE BLOOD COUNT 6.8 10^3/uL (4.0-10.0)
[2023-08-25 06:34] LABS: CORTISOL AM 9.3 UG/DL (4.3-22.4)
[2023-08-25 06:42] LABS: PROCALCITONIN <0.04 ng/ml
[2023-08-25 06:45] LABS: BLOOD UREA NITROGEN < 5 MG/DL (9-23); CALCIUM LEVEL 8.6 MG/DL (8.3-10.6); CARBON DIOXIDE LEVEL 23 MMOL/L (20-31); CHLORIDE LEVEL 103 MMOL/L (98-107); CREATININE FOR GFR 0.61 MG/DL (0.55-1.30); GLOMERULAR FILTRATION RATE > 60.0 (>39); GLUCOSE, FASTING 130 MG/DL (74-106); MAGNESIUM LEVEL 1.5 MG/DL (1.8-2.4); POTASSIUM SERUM 3.9 MMOL/L (3.5-5.1); SODIUM LEVEL 135 MMOL/L (136-145)
[2023-08-25] MEDS ORDERED: ONDA4TAB6 SL (08:29)
[2023-08-25] MEDS ORDERED: MAGN400T2 PO (08:29)
[2023-08-25 08:35] VITALS: BP 135/65
[2023-08-25] MEDS: ONDANSETRON 4MG ORAL DISINTEGRATING TAB PO SCH (08:35)
[2023-08-25] MEDS: CARVedilol 12.5 MG TAB PO SCH (08:35)
[2023-08-25] MEDS: PRAVASTATIN 20 MG TAB PO SCH (08:35)
[2023-08-25] MEDS: MULTIVITAMINS/MINERALS THERAP 1 TAB PO SCH (08:35)
[2023-08-25] MEDS: POTASSIUM CHLORIDE 10MEQ SR TABLET PO SCH (08:35)
[2023-08-25] MEDS: MONTELUKAST 10 MG TAB PO SCH (08:35)
[2023-08-25] MEDS: ENOXAPARIN 40MG/0.4ML SYRINGE (J1650 PER 10MG) SC SCH (08:36)
[2023-08-25] MEDS: MAGNESIUM OXIDE 400MG TAB (MAG-OX) PO SCH (08:36)
[2023-08-25] MEDS: INSULIN LISPRO (NovoLOG) PER UNIT SC SCH (08:37)
[2023-08-25] MEDS: PANTOPRAZOLE 40MG VIAL IV SCH (08:39)
[2023-08-25] MEDS ORDERED: SUCR1TA PO (08:42)
[2023-08-25] MEDS ORDERED: MAG SULF 1GM/100ML (MAG RUN) 1 GM in IV 1 EA IV SCH (09:00)
[2023-08-25] MEDS ORDERED: MAGNESIUM OXIDE 400MG TAB (MAG-OX) PO ONE (11:00)
== END 2023-08-25 11:30 | disposition home or self-care (01) | DRG 641 ==
LOC: M ED 16:59 → M ED INP 08-24 → M MSPAV 08-24 00:51
PROVIDERS: ADMIT Internal Medicine; ATTEND Internal Medicine Nephrology
DX: E87.1 Hypo-osmolality and hyponatremia (principal); E11.9 Type 2 diabetes mellitus without complications; I10 Essential (primary) hypertension; E78.5 Hyperlipidemia, unspecified; M19.90 Unspecified osteoarthritis, unspecified site; R29.6 Repeated falls; K29.00 Acute gastritis without bleeding; M25.511 Pain in right shoulder; G89.29 Other chronic pain; R19.7 Diarrhea, unspecified; R63.0 Anorexia; E83.42 Hypomagnesemia; E03.9 Hypothyroidism, unspecified; E87.6 Hypokalemia; Z98.41 Cataract extraction status, right eye; Z98.42 Cataract extraction status, left eye; Z79.890 Hormone replacement therapy; Z88.0 Allergy status to penicillin; Z79.84 Long term (current) use of oral hypoglycemic drugs; Z79.899 Other long term (current) drug therapy; Z20.822 Contact with and (suspected) exposure to COVID-19

== ENCOUNTER → 2023-08-23 | Outpatient (CLI) | payer MEDICARE, MEDICAID ==
[~2023-08-23] MED LIST changes: +AMLO1TAB24; +AMLO1TAB24 PO; +CARV12.5 PO; +CIPR500T39; +GLIM2TAB4 PO; +LEVO50TA5; +MAGN400T2 PO; +METF10004; +METF10004 PO; +MONT10TA97; +MONT10TA97 PO; +OMEP1CAP73 PO; +ONDA4TAB6; +ONDA4TAB6 PO; +ONDA4TAB6 SL; +OXYB5TAB11 PO; +PRAV40TA2 PO; +SUCR1TA PO; +SYNT50TA PO; +VALS1TAB66; +VALS1TAB66 PO; +VITMTA PO
[2023-08-23 07:37] LABS: HEMATOCRIT 37.4 % (36.0-47.0); HEMOGLOBIN 13.8 g/dl (12.0-15.5); MEAN CORPUSCULAR HEMOGLOBIN 29.6 pg (27.0-33.0); MEAN CORPUSCULAR VOLUME 80.3 fl (80.0-96.0); PLATELET COUNT, AUTOMATED 316 10^3/uL (150-450); RED BLOOD COUNT 4.66 10^6/uL (4.00-5.40); WHITE BLOOD COUNT 7.9 10^3/uL (4.0-10.0)
[2023-08-23 07:39] LABS: MEAN CORPUSCULAR HGB CONC 36.9 g/dl (32.0-36.5)
[2023-08-23 07:50] LABS: ALBUMIN 3.8 G/DL (3.2-5.2); ALKALINE PHOSPHATASE 58 U/L (46-116); ALT/SGPT 21 U/L (7.0-40); AST/SGOT 16 U/L (<34); BILIRUBIN,TOTAL 0.8 MG/DL (0.3-1.2); BLOOD UREA NITROGEN 11 MG/DL (9-23); CALCIUM LEVEL 9.3 MG/DL (8.3-10.6); CARBON DIOXIDE LEVEL 25 MMOL/L (20-31); CHLORIDE LEVEL 91 MMOL/L (98-107); CHOLESTEROL LEVEL 136 MG/DL (<200); CHOLESTEROL RISK RATIO 2.47 (<5); CREATININE FOR GFR 0.63 MG/DL (0.55-1.30); GLOMERULAR FILTRATION RATE > 60.0 (>39); GLUCOSE, FASTING 149 MG/DL (74-106); HDL CHOLESTEROL 54.9 MG/DL (>40); LDL CHOLESTEROL 59.1 MG/DL (<100); NON-HDL-C 81.1 MG/DL; POTASSIUM SERUM 3.6 MMOL/L (3.5-5.1); SODIUM LEVEL 126 MMOL/L (136-145); TRIGLYCERIDES LEVEL 110 MG/DL (<150)
[2023-08-23 07:52] LABS: THYROID STIMULATING HORMONE 3.139 uIU/ML (0.55-4.78); TOTAL 25(OH) VITAMIN D 56.3 NG/ML (20.0-100.0)
== END ==
LOC: M LAB 06:02
PROVIDERS: ATTEND Family Medicine
DX: R53.83 Other fatigue (principal); E11.9 Type 2 diabetes mellitus without complications; I10 Essential (primary) hypertension

== ENCOUNTER → 2024-05-14 | Outpatient (CLI) | payer MEDICARE, MEDICAID ==
[~2024-05-14] MED LIST changes: +AMLO1TAB24; +AMLO1TAB24 PO; +CARV12.5 PO; +CIPR500T39; +GLIM2TAB4 PO; +LEVO50TA5; +MAGN400T2 PO; +METF10004; +METF10004 PO; +MONT10TA97; +MONT10TA97 PO; +OMEP1CAP73 PO; +ONDA-282; +ONDA-282 PO; +ONDA-282 SL; +OXYB5TAB14 PO; +PRAV40TA2 PO; +SUCR1TA PO; +SYNT50TA PO; +VALS1TAB66; +VALS1TAB66 PO; +VITMTA PO
[2024-05-14 07:16] LABS: HEMATOCRIT 37.8 % (36.0-47.0); HEMOGLOBIN 13.4 g/dl (12.0-15.5); MEAN CORPUSCULAR HEMOGLOBIN 31.3 pg (27.0-33.0); MEAN CORPUSCULAR HGB CONC 35.4 g/dl (32.0-36.5); MEAN CORPUSCULAR VOLUME 88.3 fl (80.0-96.0); PLATELET COUNT, AUTOMATED 183 10^3/uL (150-450); RED BLOOD COUNT 4.28 10^6/uL (4.00-5.40); WHITE BLOOD COUNT 6.9 10^3/uL (4.0-10.0)
[2024-05-14 07:47] LABS: ALBUMIN 3.7 G/DL (3.2-5.2); ALKALINE PHOSPHATASE 60 U/L (46-116); ALT/SGPT 17 U/L (7.0-40); AST/SGOT < 8 U/L (<34); BILIRUBIN,TOTAL 0.5 MG/DL (0.3-1.2); BLOOD UREA NITROGEN 17 MG/DL (9-23); CALCIUM LEVEL 9.6 MG/DL (8.3-10.6); CARBON DIOXIDE LEVEL 30 MMOL/L (20-31); CHLORIDE LEVEL 108 MMOL/L (98-107); CHOLESTEROL LEVEL 144 MG/DL (<200); CHOLESTEROL RISK RATIO 2.85 (<5); CREATININE FOR GFR 0.74 MG/DL (0.55-1.30); GLOMERULAR FILTRATION RATE > 60.0 (>39); GLUCOSE, FASTING 91 MG/DL (74-106); HDL CHOLESTEROL 50.4 MG/DL (>40); IRON (FE) 120 UG/DL (50-170); LDL CHOLESTEROL 70.2 MG/DL (<100); NON-HDL-C 93.6 MG/DL; PERCENT SATURATION 36.6 % (13.2-45.0); POTASSIUM SERUM 4.2 MMOL/L (3.5-5.1); SODIUM LEVEL 143 MMOL/L (136-145); TOTAL IRON BINDING CAPACITY 328 UG/DL (250-425); TOTAL PROTEIN 6.6 G/DL (5.7-8.2); TRIGLYCERIDES LEVEL 117 MG/DL (<150)
[2024-05-14 07:49] LABS: THYROID STIMULATING HORMONE 3.059 uIU/ML (0.55-4.78)
[2024-05-14 07:51] LABS: HEMOGLOBIN A1c 5.8 % (4.0-6.0)
== END ==
LOC: M LAB 06:32
PROVIDERS: ATTEND Family Medicine
DX: I10 Essential (primary) hypertension (principal); D50.9 Iron deficiency anemia, unspecified

== ENCOUNTER → 2024-08-13 | Outpatient (CLI) | payer MEDICARE, MEDICAID ==
[2024-08-13 07:49] LABS: HEMATOCRIT 34.4 % (36.0-47.0); HEMOGLOBIN 12.2 g/dl (12.0-15.5); MEAN CORPUSCULAR HEMOGLOBIN 29.8 pg (27.0-33.0); MEAN CORPUSCULAR HGB CONC 35.5 g/dl (32.0-36.5); MEAN CORPUSCULAR VOLUME 83.9 fl (80.0-96.0); PLATELET COUNT, AUTOMATED 234 10^3/uL (150-450); WHITE BLOOD COUNT 7.2 10^3/uL (4.0-10.0)
[2024-08-13 08:19] LABS: ALBUMIN 3.5 G/DL (3.2-5.2); ALKALINE PHOSPHATASE 48 U/L (46-116); ALT/SGPT 21 U/L (7.0-40); AST/SGOT 10 U/L (<34); BILIRUBIN,TOTAL 0.7 MG/DL (0.3-1.2); BLOOD UREA NITROGEN 15 MG/DL (9-23); CALCIUM LEVEL 9.4 MG/DL (8.3-10.6); CARBON DIOXIDE LEVEL 28 MMOL/L (20-31); CHLORIDE LEVEL 96 MMOL/L (98-107); CHOLESTEROL LEVEL 154 MG/DL (<200); CHOLESTEROL RISK RATIO 3.06 (<5); CREATININE FOR GFR 0.73 MG/DL (0.55-1.30); GLOMERULAR FILTRATION RATE > 60.0 (>39); GLUCOSE, FASTING 114 MG/DL (74-106); HDL CHOLESTEROL 50.3 MG/DL (>40); LDL CHOLESTEROL 73.7 MG/DL (<100); NON-HDL-C 103.7 MG/DL; POTASSIUM SERUM 3.6 MMOL/L (3.5-5.1); SODIUM LEVEL 129 MMOL/L (136-145); TOTAL PROTEIN 6.6 G/DL (5.7-8.2); TRIGLYCERIDES LEVEL 150 MG/DL (<150)
[2024-08-13 08:21] LABS: THYROID STIMULATING HORMONE 3.775 uIU/ML (0.55-4.78)
[2024-08-13 08:22] LABS: TOTAL 25(OH) VITAMIN D 62.3 NG/ML (20.0-100.0)
[2024-08-13 08:57] LABS: HEMOGLOBIN A1c 5.9 % (4.0-6.0)
== END ==
LOC: M LAB 06:04
PROVIDERS: ATTEND Family Medicine
DX: D64.9 Anemia, unspecified (principal); R53.83 Other fatigue; E03.9 Hypothyroidism, unspecified; Z79.84 Long term (current) use of oral hypoglycemic drugs

== ENCOUNTER → 2024-09-09 | Outpatient (CLI) | payer MEDICARE, MEDICAID | LOC: M RAD 15:15 | PROVIDERS: ATTEND Family Medicine | DX: M19.012 Primary osteoarthritis, left shoulder (principal) ==

== ENCOUNTER → 2024-10-29 | Outpatient (CLI) | payer MEDICARE, MEDICAID ==
[~2024-10-29] MED LIST changes: +BAYE81TA10 PO; +DIVA250T67 PO; +DONE5TAB82 PO; +E-Z-GAS II EFFERVESCENT PACKET (SODIUM BICARB./CITRIC ACID/SIMETHICONE) As Ordered ONE; +E-Z-HD 98% w/w 340GM SUSP BTL As Ordered ONE; +E-Z-PAQUE 96% w/w SUSP 176GM BTL As Ordered ONE; +GLIM2TAB29 PO; +LEVO50TA5 PO; +PANT40TA29 PO; +PRAV20TA2 PO; +REST0.05 OU
== END ==
LOC: M RAD 07:53
PROVIDERS: ATTEND Family Medicine
DX: R10.9 Unspecified abdominal pain (principal); R63.4 Abnormal weight loss

== ENCOUNTER 2024-12-01 10:00 | Day surgery (SDC) | payer MEDICARE, MEDICAID ==
[~2024-12-01] VITALS: Ht 154.9 cm; Wt 48.5 kg
[~2024-12-01 10:00] MED LIST changes: +ALEV220T22 PO; +COFF1CAP3 PO; -E-Z-GAS II EFFERVESCENT PACKET (SODIUM BICARB./CITRIC ACID/SIMETHICONE) As Ordered ONE; -E-Z-HD 98% w/w 340GM SUSP BTL As Ordered ONE; -E-Z-PAQUE 96% w/w SUSP 176GM BTL As Ordered ONE; +LIDOCAINE 2% 100MG/5ML SDV (FOR ANES.) As Ordered ONE; +[UNRECOGNIZED DRUG - REMARK]; +fentaNYL 100 MCG/2 ML INJECTION As Ordered ONE; +propofoL 200 MG/20 ML VIAL As Ordered ONE
[2024-12-01 11:35] VITALS: TEMP 97.5
[2024-12-01 12:00] VITALS: BP 164/77; O2SAT 98
[2024-12-01] MEDS ORDERED: ePHEDrine SULFATE 25 MG/5 ML(5MG/ML) SYRINGE As Ordered ONE (12:19)
== END 2024-12-01 12:17 | disposition home or self-care (01) ==
LOC: M OPP 10:00
PROVIDERS: ATTEND Internal Medicine Gastroenterology
DX: K64.0 First degree hemorrhoids (principal); R63.4 Abnormal weight loss; R12 Heartburn; Z88.0 Allergy status to penicillin; Z79.82 Long term (current) use of aspirin; Z79.84 Long term (current) use of oral hypoglycemic drugs; Z79.899 Other long term (current) drug therapy
CPT/HCPCS: 43239; 45385; 88305; J3010

== ENCOUNTER → 2025-06-05 | Outpatient (REF) | payer MEDICARE, MEDICAID ==
[~2025-06-05] MED LIST changes: -LIDOCAINE 2% 100MG/5ML SDV (FOR ANES.) As Ordered ONE; -PRAV20TA2 PO; +PRAV20TA78 PO; -PRAV40TA2 PO; +PRAV40TA85 PO; -fentaNYL 100 MCG/2 ML INJECTION As Ordered ONE; -propofoL 200 MG/20 ML VIAL As Ordered ONE
[2025-06-05 18:13] LABS: APPEARANCE, URINE HAZY (CLEAR); BACTERIA, URINE AUTO 3+ (NEGATIVE); BILIRUBIN, URINE AUTO NEGATIVE (NEGATIVE); BLOOD, URINE BLOOD NEGATIVE (NEGATIVE); GLUCOSE, URINE (UA) AUTO NEGATIVE (NEGATIVE); KETONE, URINE AUTO NEGATIVE (NEGATIVE); LEUKOCYTE ESTERASE, URINE AUTO 3+ (NEGATIVE); NITRITE, URINE AUTO NEGATIVE (NEGATIVE); PROTEIN, URINE AUTO NEGATIVE (NEGATIVE); RBC, URINE AUTO 1 /HPF (0-3); SPECIFIC GRAVITY URINE AUTO 1.015 (1.002-1.035); SQUAMOUS EPITHELIAL CELL UR AU 0 /HPF (0-6); UROBILINOGEN, URINE AUTO 0.2 mg/dL (0.0-2.0); WBC, URINE AUTO 31 /HPF (0-3)
== END ==
LOC: M LAB REF 16:54
PROVIDERS: ATTEND Physician Assistant
DX: N39.0 Urinary tract infection, site not specified (principal)

== ENCOUNTER → 2025-09-16 | Outpatient (REF) | payer MEDICARE, MEDICAID | LOC: M SFHCPLAZ 00:32 → MERGE 00:32 | PROVIDERS: ATTEND Family Medicine | DX: E11.9 Type 2 diabetes mellitus without complications (principal); E03.9 Hypothyroidism, unspecified; Z53.9 Procedure and treatment not carried out, unspecified reason ==

== ENCOUNTER → 2025-09-22 | Outpatient (CLI) | payer MEDICARE, MEDICAID ==
[2025-09-22 09:49] LABS: PLATELET COUNT, AUTOMATED 192 10^3/uL (150-450)
[2025-09-22 10:06] LABS: ESTIMATED AVERAGE GLUCOSE 143.0 MG/DL (60-110)
[2025-09-22 10:08] LABS: FREE T4 1.48 NG/DL (0.89-1.76)
[2025-09-22 10:14] LABS: ALT/SGPT 23.0 U/L (7.0-40); AST/SGOT 44.0 U/L (<34); CALCIUM LEVEL 8.9 MG/DL (8.3-10.6); CARBON DIOXIDE LEVEL 24.0 MMOL/L (20-31); CHLORIDE LEVEL 108.0 MMOL/L (98-107); CHOLESTEROL LEVEL 202.0 MG/DL (<200); CHOLESTEROL RISK RATIO 3.51 (<5); CREATININE FOR GFR 0.72 MG/DL (0.55-1.30); CREATININE, URINE 34.2 MG/DL; GLOMERULAR FILTRATION RATE 85.5 (>39); LDL CHOLESTEROL 114.2 MG/DL (<100); MALB URINE SIEMENS 24.0 MG/L; MAU/CREAT RATIO 70.1 MCG/MG (0.0-30.0); NON-HDL-C 144.6 MG/DL; POTASSIUM SERUM 5.2 MMOL/L (3.5-5.1); SODIUM LEVEL 144.0 MMOL/L (136-145); TRIGLYCERIDES LEVEL 152.0 MG/DL (<150)
== END ==
LOC: MERGE 08:26 → M LAB 08:26
PROVIDERS: ATTEND Family Medicine
DX: E11.9 Type 2 diabetes mellitus without complications (principal); E03.9 Hypothyroidism, unspecified